=== PATIENT | male | born 1990 | race Caucasian/White ===

== ENCOUNTER → 2017-09-07 | Outpatient (CLI) | payer OTHER | LOC: FIMAGING 13:06 | DX: I72.4 Aneurysm of artery of lower extremity (principal) ==

== ENCOUNTER 2017-11-22 20:01 | Emergency (ER) | payer OTHER ==
[2017-11-22 20:19] VITALS: BP 144/72
--- NOTE | 2017-11-22 20:46 | EDPHY ---
H & P Stated Complaint: ASTHMA EXACERB/X 2 DAYS, W/COLD Time Seen by Provider: 11/22/17 20:45 - Personal History Current Tetanus Diphtheria and Acellular Pertussis (TDAP): Yes - Medical/Surgical History Hx Asthma: Yes Hx Chronic Respiratory Disease: No Hx Diabetes: No Hx Cardiac Disease: No Hx Renal Disease: No Hx Cirrhosis: No Hx Alcoholism: No Hx HIV/AIDS: No Hx Splenectomy or Spleen Trauma: No Other PMH: ASTHMA, KNEE, HIP SX - Social History Smoking Status: Never smoked Constitutional: Initial Vital Signs Temperature (C) 36.6 C 11/22/17 20:16 Heart Rate 78 11/22/17 20:16 Respiratory Rate 18 11/22/17 20:16 Blood Pressure 144/72 H 11/22/17 20:16 O2 Sat (%) 95 11/22/17 20:16 O2 Delivery Mode Room Air Allergies/Adverse Reactions: No Known Allergies Allergy (Unverified 11/22/17 20:19) Home Medications: Medication Instructions Recorded Albuterol 11/22/17 Albuterol [Proventil Inhaler] 1 - 2 puffs IH Q4 #1 mdi 11/22/17 Azithromycin [Zithromax] 250 mg PO DAILY #6 tab 11/22/17 predniSONE 40 mg PO DAILY #10 tab 11/22/17 Medical Decision Making ED Course/Re-evaluation: CHIEF COMPLAINT: Asthma exacerbation HISTORY OF PRESENT ILLNESS: The patient is a 27 y/o male with a history of asthma complaining of acute asthma exacerbation, onset 1 day ago. The patient developed a chest cold yesterday, which caused his asthma to exacerbate. He used his albuterol inhaler twice today and took his prescribed inhaler steroid without relief of symptoms. No headache, chest pain, abdominal pain, urinary or bowel complaints, numbness, paresthesias, fevers. REVIEW OF SYSTEMS: A comprehensive 10 system review of systems is otherwise negative aside from elements mentioned in the history of present illness and medical decision making. PHYSICAL EXAM: HR, BP, O2 Sat, RR. Temp noted General Appearance: Alert, well hydrated, appropriate, and non-toxic appearing. Head: Atraumatic without scalp tenderness or obvious injury Eyes: Pupils equal, round, reactive to light and accommodation, EOMI, no trauma , no injection. Ears: Clear bilaterally, no perforation, normal landmarks Nose: Atraumatic, no rhinorrhea, clear. Throat: There is no erythema or exudates, no lesions, normal tonsils, mucus membranes moist. Neck: Supple, 2+ carotid upstroke, nontender, no lymphadenopathy. Respiratory: No retractions, no distress, no wheezes, and no accessory muscle use. Lungs are clear to auscultation bilaterally. Cardiovascular: Regular rate and rhythm, no murmurs, rubs, or gallops. Bilateral carotid, radial, dorsalis pedis, and posterior tibial pulses intact. Good capillary refill all extremities. Gastrointestinal: Abdomen is soft, nontender, non-distended, no masses, no rebound, no guarding, no peritoneal signs. Musculoskeletal: Normal active ROM of all extremities, atraumatic. Neurological: Alert, appropriate, and interactive. The patient has normal DTRs and non-focal cranial nerves, motor, sensory, and cerebellar exam. Skin: No rashes, good turgor, no nodules on palpation. Past medical history: Asthma Past surgical history: Hip and knee surgery Family history: Denies Social history: Originally from [place], lives in [place] DIAGNOSTICS/PROCEDURES/CRITICAL CARE TIME: Not indicated. DIFFERENTIAL DIAGNOSIS: The differential diagnosis for the patient's shortness of breath and hypoxemia included but was not limited to asthma exacerbation, pneumonia, myocardial infarction, acute mountain sickness, high altitude pulmonary edema, congestive heart failure, and pulmonary embolus. MEDICAL DECISION MAKING: The patient is a 27 y/o male with a history of asthma presenting with an acute asthma exacerbation, onset 1 day ago. On exam he has coarse rhonchi and wheezing throughout. DuoNeb and 500mg PO Azithromycin administered. He is declining Prednisone at this time as he normally has insomnia. 2100: Reassessed patient, he is feeling better after the DuoNeb. I have prescribed him Prednisone and a Z-colleen. Return precautions provided; patient is comfortable with this plan. - Data Points Medications Given: Discontinued Medications Albuterol/Ipratropium (Duoneb) 3 ml IH EDNOW ONE Stop: 11/22/17 20:57 Last Admin: 11/22/17 21:03 Dose: 3 ml Azithromycin (Zithromax) 500 mg PO EDNOW ONE PRN Reason: Protocol Stop: 11/22/17 20:57 Last Admin: 11/22/17 21:03 Dose: 500 mg Departure - Departure Disposition: Home, Routine, Self-Care Clinical Impression: Exacerbation of asthma Qualifiers: Asthma severity: mild Asthma persistence: intermittent Qualified Code(s): J45.21 - Mild intermittent asthma with (acute) exacerbation Acute bronchitis Qualifiers: Bronchitis organism: other organism Qualified Code(s): J20.8 - Acute bronchitis due to other specified organisms Condition: Good Instructions: Asthma (ED), Acute Bronchitis (ED) Additional Instructions: 1, Take Prednisone and the Z-colleen as prescribed. 2. Use your Albuterol inhaler multiple times a day if your symptoms continue. 3. Follow-up with your primary doctor within 72 hours. 4. Return to the Emergency Department for fever, chest pain, shortness of breath , increasing pain or other worsening of condition. Referrals: PREETHI MARIANO [Other] - As per Instructions Prescriptions: Albuterol [Proventil Inhaler] 1 - 2 puffs IH Q4 #1 mdi Azithromycin [Zithromax] 250 mg PO DAILY #6 tab predniSONE 40 mg PO DAILY #10 tab Report Scribed for: Gerry Eisenberg Report Scribed by: Jeimy Posadas Date of Report: 11/22/17 Time of Report: 20:46
[2017-11-22] MEDS ORDERED: IPRATROPIUM/ALBUTEROL 3 ML DEYVIAL IH ONE (20:56)
[2017-11-22] MEDS ORDERED: AZITHROMYCIN 250 MG TAB PO ONE (20:56)
== END 2017-11-22 21:05 | disposition home or self-care (01) ==
DX: J45.21 Mild intermittent asthma with (acute) exacerbation (principal); J20.8 Acute bronchitis due to other specified organisms

== ENCOUNTER 2018-04-22 21:58 | Emergency (ER) | payer OTHER ==
--- NOTE | 2018-04-22 22:09 | EDPHY ---
H & P Stated Complaint: asthma attack Time Seen by Provider: 04/22/18 22:09 HPI/ROS: HPI CHIEF COMPLAINT: shortness of breath, asthma attack. HISTORY OF PRESENT ILLNESS: 27-year-old male presents emergency room with shortness of breath cough and wheezing. Patient states he has been sick for 24 hr. He thinks he has a upper respiratory tract infection that has triggered his asthma. Patient has a history of asthma he has never been intubated he has come to the emergency room the last 6 months for breathing treatments. He reports that over the last 24 hr he has "caught a cold" which is inflamed his lungs. He arrives to the emergency room in no acute distress. He has taking his albuterol inhaler multiple x6 times today. No history of intubation. Denies fever. He does endorse productive cough with yellow sputum. No blood. Past Medical History: Asthma Past Surgical History: No recent surgery Social History: Drinks alcohol, denies drugs or tobacco. Family History: Noncontributory ROS REVIEW OF SYSTEMS: 10 Systems were reviewed and negative with the exception of the elements mentioned in the history of present illness. Exam Constitutional triage nursing summary reviewed, vital signs reviewed, awake/ alert. Eyes normal conjunctivae and sclera, EOMI, PERRLA. HENT normal inspection, atraumatic, moist mucus membranes, no epistaxis, neck supple/ no meningismus, no raccoon eyes. Respiratory good air movement bilaterally, faint wheezing. No distress. Cardiovascular rate normal, regular rhythm, no murmur, no edema, distal pulses normal. Gastrointestinal soft, non-tender, no rebound, no guarding, normal bowel sounds, no distension, no pulsatile mass. Genitourinary no CVA tenderness. Musculoskeletal no midline vertebral tenderness, full range of motion, no calf swelling, no tenderness of extremities, no meningismus, good pulses, neurovascularly intact. Skin pink, warm, & dry, no rash, skin atraumatic. Neurologic awake, alert and oriented x 3, AAOx3, moves all 4 extremities equally, motor intact, sensory intact, CN II-XII intact, normal cerebellar, normal vision, normal speech. Psychiatric normal mood/affect. Heme/Lymph/Immune no lymphadenopathy. Differential Diagnosis: Includes but is not limited to in a particular order bronchitis, viral syndrome, pneumonia, viral pneumonia, bacterial pneumonia, asthma, reactive airway disease, Medical Decision Making: Plan for this patient IV establishment IV fluid bolus , DuoNeb breathing treatment, IV Solu-Medrol, chest x-ray two view, basic blood work, and re-evaluate. Re-evaluation: Patient influenza a positive. Patient's blood work reviewed creatinine slightly elevated. Will give 2nd L fluid. Re-examination at this time 11:52 p.m. Good air movement bilaterally no wheezing. Feeling better. Will start on Tamiflu. Chest x-ray two view reviewed negative for acute cardiopulmonary disease no evidence pneumonia. Patient re-evaluated this time 12:52 a.m. He has influenza a positive. Tamiflu as been given. He is feeling much better after 2 L of fluid. He is requesting a 2nd DuoNeb breathing treatment which I have ordered. 0208: Re-examination at this time patient resting comfortably in no acute distress feels much better after DuoNeb treatments x2. 2 L of fluid. Chest x-ray shows no pneumonia Patient influenza a positive Recommend he stays well hydrated drink lots of fluids Prescription for Tamiflu, prednisone, albuterol Return precautions discussed he understands return emergency room if develops worsening shortness of breath, wheezing, not doing well At 2:08 a.m. The patient is requesting discharge she states he feels much better. He has good air movement on lung exam bilaterally. No wheezing. No distress. He wants to go home. Oxygen saturation 97% on room air. No distress. Return precautions discussed he understands. Source: Patient - Personal History Current Tetanus/Diphtheria Vaccine: Unsure Current Tetanus Diphtheria and Acellular Pertussis (TDAP): Unsure - Medical/Surgical History Hx Asthma: Yes Hx Chronic Respiratory Disease: No Hx Diabetes: No Hx Cardiac Disease: No Hx Renal Disease: No Hx Cirrhosis: No Hx Alcoholism: No Hx HIV/AIDS: No Hx Splenectomy or Spleen Trauma: No Other PMH: ASTHMA, KNEE, HIP SX - Social History Smoking Status: Never smoked Constitutional: Initial Vital Signs Temperature (C) 36.9 C 04/22/18 22:04 Heart Rate 85 04/22/18 22:04 Respiratory Rate 16 04/22/18 22:04 Blood Pressure 149/70 H 04/22/18 22:04 O2 Sat (%) 93 04/22/18 22:04 O2 Delivery Mode Room Air O2 (L/minute) 2 Allergies/Adverse Reactions: No Known Allergies Allergy (Verified 04/22/18 22:06) Home Medications: Medication Instructions Recorded Albuterol 11/22/17 Albuterol [Proventil Inhaler HFA 1 - 2 puffs IH Q4H #1 mdi 04/22/18 (*)] Oseltamivir Phosphate [Tamiflu 75 75 mg PO BID #10 cap 04/22/18 mg (*)] Prozac 20 MG (*) 04/22/18 predniSONE 60 mg PO DAILY #15 tab 04/22/18 Medical Decision Making - Data Points Laboratory Results: Laboratory Results 04/22/18 22:20 04/22/18 22:20 Medications Given: Discontinued Medications Albuterol/Ipratropium (Duoneb) 3 ml IH EDNOW ONE Stop: 04/22/18 22:14 Last Admin: 04/22/18 22:21 Dose: 3 ml Albuterol/Ipratropium (Duoneb) 3 ml IH EDNOW ONE Stop: 04/23/18 00:52 Last Admin: 04/23/18 00:56 Dose: 3 ml Sodium Chloride (Ns) 1,000 mls @ 0 mls/hr IV ONCE ONE; Wide Open PRN Reason: Protocol Stop: 04/22/18 22:14 Last Admin: 04/22/18 22:21 Dose: 1,000 mls Sodium Chloride (Ns) 1,000 mls @ 0 mls/hr IV ONCE ONE PRN Reason: Wide Open Stop: 04/22/18 23:53 Last Admin: 04/22/18 23:58 Dose: 1,000 mls Methylprednisolone Sodium Succinate (Solu-Medrol) 125 mg IVP EDNOW ONE Stop: 04/22/18 22:14 Last Admin: 04/22/18 22:21 Dose: 125 mg Oseltamivir Phosphate (Tamiflu) 75 mg PO EDNOW ONE Stop: 04/22/18 23:51 Last Admin: 04/22/18 23:58 Dose: 75 mg Departure - Departure Disposition: Home, Routine, Self-Care Clinical Impression: Influenza A, Dehydration Asthma Qualifiers: Asthma severity: mild Asthma persistence: unspecified Asthma complication type : with acute exacerbation Qualified Code(s): J45.901 - Unspecified asthma with ( acute) exacerbation Condition: Good Instructions: Asthma (ED), Dehydration (ED), Influenza (ED) Additional Instructions: 1. Make sure to drink lots of fluids stay well-hydrated 2. Return emergency room if you have worsening trouble breathing, not doing well 3. Tamiflu as prescribed on a full stomach. 4. Year creatinine was noted to be 1.4 here your kidneys are slightly dehydrated this needs to be repeated by her primary care doctor Referrals: NONE *PRIMARY CARE P,. [Primary Care Provider] - As per Instructions [facility] [Clinic] - As per Instructions Prescriptions: Albuterol [Proventil Inhaler HFA (*)] 1 - 2 puffs IH Q4H #1 mdi Oseltamivir Phosphate [Tamiflu 75 mg (*)] 75 mg PO BID #10 cap predniSONE 60 mg PO DAILY #15 tab
[2018-04-22] MEDS ORDERED: IPRATROPIUM/ALBUTEROL 3 ML DEYVIAL ONE (22:13)
[2018-04-22] MEDS ORDERED: methylPREDNISolone SOD SUCC 125 MG/2 ML VIAL IVP ONE (22:13)
[2018-04-22] MEDS ORDERED: NS 1,000 ML IV ONE ×2 (22:13→23:52)
[2018-04-22] MEDS ORDERED: methylPREDNISolone SOD SUCC 125 MG/2 ML VIAL ONE (22:13)
[2018-04-22] MEDS: IPRATROPIUM/ALBUTEROL 3 ML DEYVIAL IH ONE (22:21)
[2018-04-22 22:31] LABS: PLATELET COUNT 232 10^3/uL (150-400)
[2018-04-22] MEDS ORDERED: OSELTAMIVIR PHOSPHATE 75 MG CAP PO ONE (23:50)
[2018-04-23] MEDS ORDERED: IPRATROPIUM/ALBUTEROL 3 ML DEYVIAL IH ONE (00:51)
[2018-04-23] MEDS ORDERED: IPRATROPIUM/ALBUTEROL 3 ML DEYVIAL ONE (00:52)
[2018-04-23 02:11] VITALS: BP 127/78
== END 2018-04-23 02:17 | disposition home or self-care (01) ==
DX: J10.1 Influenza due to other identified influenza virus with other respiratory manifestations (principal); E86.0 Dehydration; J45.901 Unspecified asthma with (acute) exacerbation
CPT/HCPCS: 96374; J2930